=== PATIENT | male | born 1935 | race Caucasian/White ===

== ENCOUNTER 2017-02-18 07:18 | Day surgery (SDC) | payer MEDICARE, BC ==
[2017-02-18] MEDS ORDERED: PROPOFOL 500 MG/50 ML EMU IV ONE (07:33)
[2017-02-18] MEDS ORDERED: LIDOCAINE HCL 1% MPF SOL ONE (07:33)
[2017-02-18 09:04] VITALS: TEMP 97.4
[2017-02-18 09:31] VITALS: RESP 20
[2017-02-18 09:40] VITALS: BP 153/78; PULSE 59; O2SAT 99
== END 2017-02-18 09:51 | disposition home or self-care (01) | DRG 392 ==
LOC: SURG 07:18
PROVIDERS: ATTEND Internal Medicine Gastroenterology
DX: R13.10 Dysphagia, unspecified (principal); K21.9 Gastro-esophageal reflux disease without esophagitis; K22.70 Barrett's esophagus without dysplasia; K44.9 Diaphragmatic hernia without obstruction or gangrene; K31.7 Polyp of stomach and duodenum
CPT/HCPCS: J2001; J2704

== ENCOUNTER 2017-04-04 09:36 | Outpatient (CLI) | payer MEDICARE, BC ==
[2017-02-18 09:40] VITALS: O2SAT 99
== END 2017-04-04 09:37 | disposition home or self-care (01) | DRG 561 ==
LOC: CONVCARE 09:36
PROVIDERS: ATTEND Orthopaedic Surgery
DX: S72.142D Displaced intertrochanteric fracture of left femur, subsequent encounter for closed fracture with routine healing (principal); M17.0 Bilateral primary osteoarthritis of knee
CPT/HCPCS: 73502; 73552; 73564

== ENCOUNTER 2017-05-26 05:45 | Inpatient (IN) | payer MEDICARE, BC ==
[2017-05-26] MEDS ORDERED: SCOPOLAMINE 1.5MG PATCH TD SCH (06:00)
[2017-05-26] MEDS ORDERED: LACTATED RINGERS 1,000 ML IV ONE (06:00)
[2017-05-26] MEDS ORDERED: LACTATED RINGERS 1,000 ML IV SCH (07:00)
[2017-05-26] MEDS ORDERED: SODIUM CHLORIDE 20 ML 40 ML ONE (07:08)
[2017-05-26] MEDS ORDERED: TRANEXAMIC ACID 100 MG/ML SOL ONE ×2 (07:08→07:09)
[2017-05-26] MEDS ORDERED: MIDAZOLAM 2 MG/2 ML SOL ONE (07:12)
[2017-05-26] MEDS ORDERED: PROPOFOL 500 MG/50 ML EMU IV ONE ×3 (07:12→10:28)
[2017-05-26] MEDS ORDERED: MORPHINE SULFATE 0.5 MG/ML SOL ONE (07:12)
[2017-05-26] MEDS ORDERED: DEXAMETHASONE 20 MG/5 ML (4 MG/ML SOL) ONE (07:12)
[2017-05-26] MEDS ORDERED: LIDOCAINE HCL 1% MPF SOL ONE (07:12)
[2017-05-26] MEDS ORDERED: ONDANSETRON HCL 4 MG/2 ML SOL ONE (07:12)
[2017-05-26] MEDS ORDERED: PHENYLEPHRINE HYDROCHLORIDE 10 MG/ML SOL ONE (07:18)
[2017-05-26] MEDS ORDERED: CEFAZOLIN SODIUM 1 GM PDS ONE ×3 (07:18→19:50)
[2017-05-26] MEDS ORDERED: EPHEDRINE SULFATE 50 MG/ML SOL ONE (09:16)
[2017-05-26] MEDS: BUPIVACAINE HCL 0.25% MPF 10 ML SOL INFIL ONE ×4 (09:48→11:41)
[2017-05-26] MEDS: BUPIVACAINE LIPOSOME 20 ML SUS ONE ×4 (09:48→11:41)
[2017-05-26] MEDS ORDERED: SODIUM CHLORIDE 0.9% FLUSH 10 ML SOL IV ONE ×4 (09:48→11:41)
[2017-05-26] MEDS ORDERED: PROPOFOL 10 MG/ML EMU IV ONE (11:32)
[2017-05-26] MEDS ORDERED: MAGNESIUM HYDROXIDE 30 ML SUS PO PRN (13:02)
[2017-05-26] MEDS ORDERED: ZOLPIDEM TARTRATE 5 MG TAB PO PRN (13:02)
[2017-05-26] MEDS ORDERED: SODIUM CHLORIDE 0.9% 500 ML 500 ML IV PRN (13:02)
[2017-05-26] MEDS ORDERED: ALUMINUM/MAGNESIUM 30 ML SUS PO PRN (13:02)
[2017-05-26] MEDS ORDERED: ACETAMINOPHEN 325 MG PO PRN (13:02)
[2017-05-26] MEDS ORDERED: DIAZEPAM 5 MG TAB PO PRN (13:02)
[2017-05-26] MEDS ORDERED: ONDANSETRON 4 MG ODT BU PRN (13:02)
[2017-05-26] MEDS ORDERED: FLEET ENEMA PR PRN (13:02)
[2017-05-26] MEDS ORDERED: ONDANSETRON HCL 4 MG/2 ML SOL IV PRN (13:02)
[2017-05-26] MEDS ORDERED: BISACODYL 10 MG SUP PR PRN (13:02)
[2017-05-26] MEDS: DEXTROSE/SALINE 0.45/KCL 20MEQ 1,000 ML/1,000 ML SOL IV SCH (13:45)
[2017-05-26] MEDS: SODIUM CHLORIDE 0.9% FLUSH 10 ML SOL IV SCH ×2 (13:45→22:32)
[2017-05-26] MEDS: APAP/OXYCODONE 325/5 TAB PO PRN ×2 (15:23→21:05)
[2017-05-26] MEDS ORDERED: CEFAZOLIN SODIUM 1 GM PDS 2 GM in SODIUM CHLORIDE 0.9% 100 ML 100 ML IV SCH (19:03)
[2017-05-26] MEDS ORDERED: SODIUM CHLORIDE 0.9% 100 ML 100 ML IV ONE (19:50)
[2017-05-26] MEDS: CEFAZOLIN SODIUM 1 GM PDS 2 GM in SODIUM CHLORIDE 0.9% 100 ML 100 ML IV SCH (20:21)
[2017-05-26] MEDS: GABAPENTIN 300 MG CAP PO SCH (21:04)
[2017-05-26] MEDS: SENNOSIDES A AND B 8.6 MG TAB PO SCH (21:05)
[2017-05-27] MEDS: DEXTROSE/SALINE 0.45/KCL 20MEQ 1,000 ML/1,000 ML SOL IV SCH ×3 (00:10→21:00)
[2017-05-27] MEDS ORDERED: SODIUM CHLORIDE 0.9% 100 ML 100 ML IV ONE (03:34)
[2017-05-27] MEDS ORDERED: CEFAZOLIN SODIUM 1 GM PDS ONE (03:34)
[2017-05-27] MEDS: APAP/OXYCODONE 325/5 TAB PO PRN ×2 (03:45→08:18)
[2017-05-27] MEDS: CEFAZOLIN SODIUM 1 GM PDS 2 GM in SODIUM CHLORIDE 0.9% 100 ML 100 ML IV SCH (03:45)
[2017-05-27] MEDS: SODIUM CHLORIDE 0.9% FLUSH 10 ML SOL IV SCH ×2 (05:02→15:37)
[2017-05-27 07:20] LABS: CALCIUM 7.8 mg/dl (8.5-10.1); POTASSIUM 4.8 mMol/L (3.5-5.1)
[2017-05-27 07:21] LABS: MEAN CORPUSCULAR HGB CONC 34.8 gm/dl (32.0-36.0)
[2017-05-27] MEDS: ENOXAPARIN 40 MG SOL SC SCH (08:18)
[2017-05-27] MEDS: GABAPENTIN 300 MG CAP PO SCH ×2 (08:18→20:37)
[2017-05-27] MEDS ORDERED: PANTOPRAZOLE SODIUM 40 MG ECT PO SCH (09:00)
[2017-05-27] MEDS: APAP/HYDROCODONE 325/5 TAB PO PRN ×2 (13:45→20:36)
[2017-05-27] MEDS: SENNOSIDES A AND B 8.6 MG TAB PO SCH (20:37)
[2017-05-28] MEDS: SODIUM CHLORIDE 0.9% FLUSH 10 ML SOL IV SCH ×4 (01:37→20:27)
[2017-05-28] MEDS: APAP/HYDROCODONE 325/5 TAB PO PRN ×3 (05:40→18:28)
[2017-05-28 05:52] LABS: MEAN CORPUSCULAR HGB CONC 36.8 gm/dl (32.0-36.0)
[2017-05-28 06:02] LABS: CALCIUM 7.7 mg/dl (8.5-10.1)
[2017-05-28] MEDS ORDERED: SODIUM CHLORIDE 0.9% 1000ML 1,000 ML IV SCH (07:00)
[2017-05-28] MEDS: GABAPENTIN 300 MG CAP PO SCH ×2 (08:42→20:26)
[2017-05-28] MEDS: ENOXAPARIN 40 MG SOL SC SCH (08:42)
[2017-05-28] MEDS: PANTOPRAZOLE SODIUM 40 MG/10 ML PDS IV SCH (08:43)
[2017-05-28] MEDS ORDERED: ALBUTEROL NEB SOL 2.5MG/3ML 1 VIAL SOL NEB ONE (11:40)
[2017-05-28] MEDS ORDERED: ALBUTEROL NEB SOL 2.5MG/3ML 1 VIAL SOL NEB PRN (17:35)
[2017-05-28] MEDS: SENNOSIDES A AND B 8.6 MG TAB PO SCH (20:26)
[2017-05-29] MEDS: APAP/HYDROCODONE 325/5 TAB PO PRN ×3 (04:44→20:28)
[2017-05-29] MEDS: SODIUM CHLORIDE 0.9% FLUSH 10 ML SOL IV SCH ×4 (04:45→20:30)
[2017-05-29 07:17] LABS: CALCIUM 7.8 mg/dl (8.5-10.1); POTASSIUM 4.5 mMol/L (3.5-5.1)
[2017-05-29] MEDS: PANTOPRAZOLE SODIUM 40 MG/10 ML PDS IV SCH (08:56)
[2017-05-29] MEDS: GABAPENTIN 300 MG CAP PO SCH ×2 (08:56→20:28)
[2017-05-29] MEDS ORDERED: FERROUS GLUCONATE 324 MG TAB PO SCH (09:00)
[2017-05-29] MEDS: ENOXAPARIN 40 MG SOL SC SCH (09:01)
[2017-05-29] MEDS: POLYETHYLENE GLYCOL 17 GM/1 TBS PDS PO SCH (09:07)
[2017-05-29] MEDS: SENNOSIDES A AND B 8.6 MG TAB PO SCH (20:28)
[2017-05-30] MEDS: SODIUM CHLORIDE 0.9% FLUSH 10 ML SOL IV SCH ×4 (05:17→23:25)
[2017-05-30] MEDS: APAP/HYDROCODONE 325/5 TAB PO PRN ×3 (05:25→17:47)
[2017-05-30 07:20] LABS: CALCIUM 7.9 mg/dl (8.5-10.1); POTASSIUM 4.1 mMol/L (3.5-5.1)
[2017-05-30 07:25] LABS: BASOPHILS % (AUTO) 1 % (0-3); EOSINOPHILS % (AUTO) 3 % (0-9); HEMATOCRIT 22 % (39-53); MEAN CORPUSCULAR VOLUME 94 fL (80-100); MONOCYTES % (AUTO) 12.4 % (0-12); NEUTROPHILS % (AUTO) 75.6 % (37-80)
[2017-05-30] MEDS: GABAPENTIN 300 MG CAP PO SCH ×2 (08:20→19:59)
[2017-05-30] MEDS: FERROUS GLUCONATE 324 MG TABLET PO SCH (08:21)
[2017-05-30] MEDS: POLYETHYLENE GLYCOL 17 GM/1 TBS PDS PO SCH (08:22)
[2017-05-30] MEDS: PANTOPRAZOLE SODIUM 40 MG/10 ML PDS IV SCH (08:28)
[2017-05-30] MEDS: ENOXAPARIN 40 MG SOL SC SCH (08:31)
[2017-05-30 10:34] LABS: ABO O; ANTIBODY SCREEN Negative; RH TYPE Negative; UNIT TYPE O NEGATIVE
[2017-05-30 10:35] LABS: UNIT TYPE O NEGATIVE
[2017-05-30] MEDS ORDERED: FUROSEMIDE 20mg SOL IV ONE (16:32)
[2017-05-30 16:35] VITALS: RESP 20
[2017-05-30] MEDS ORDERED: FUROSEMIDE 20mg SOL ONE (16:38)
[2017-05-30] MEDS: SENNOSIDES A AND B 8.6 MG TAB PO SCH (19:59)
[2017-05-31] MEDS: APAP/HYDROCODONE 325/5 TAB PO PRN ×2 (02:14→07:44)
[2017-05-31 06:37] VITALS: BP 124/77; PULSE 78; TEMP 98.3; O2SAT 92
[2017-05-31] MEDS: SODIUM CHLORIDE 0.9% FLUSH 10 ML SOL IV SCH ×3 (06:46→08:44)
[2017-05-31 07:07] LABS: CALCIUM 8.1 mg/dl (8.5-10.1); POTASSIUM 3.8 mMol/L (3.5-5.1)
[2017-05-31 07:15] LABS: HEMATOCRIT 29 % (39-53); MEAN CORPUSCULAR HGB CONC 34.8 gm/dl (32.0-36.0); MEAN CORPUSCULAR VOLUME 91 fL (80-100)
[2017-05-31 07:38] LABS: LYMPHOCYTES % (MANUAL) 14 % (10-50)
[2017-05-31 07:39] LABS: BASOPHILS % (MANUAL) 0 % (0-3); EOSINOPHILS % (MANUAL) 3 % (0-9); NORMAL RBCS PRESENT
[2017-05-31] MEDS: ENOXAPARIN 40 MG SOL SC SCH (08:41)
[2017-05-31] MEDS: GABAPENTIN 300 MG CAP PO SCH (08:42)
[2017-05-31] MEDS: FERROUS GLUCONATE 324 MG TABLET PO SCH (08:42)
[2017-05-31] MEDS: POLYETHYLENE GLYCOL 17 GM/1 TBS PDS PO SCH (08:43)
[2017-05-31] MEDS: PANTOPRAZOLE SODIUM 40 MG/10 ML PDS IV SCH (08:43)
== END 2017-05-31 15:00 | disposition home or self-care (01) | DRG 462 ==
LOC: ACUTE CARE 05:45
PROVIDERS: ADMIT Orthopaedic Surgery; ATTEND Orthopaedic Surgery
PROC: F0125ZZ Range of Motion and Joint Integrity Assessment of Neurological System - Lower Back / Lower Extremity (ICD-10-PCS; 2017-05-26)
PROC: 0SRD0J9 Replacement of Left Knee Joint with Synthetic Substitute, Cemented, Open Approach (ICD-10-PCS; 2017-05-26)
PROC: 0SRC0J9 Replacement of Right Knee Joint with Synthetic Substitute, Cemented, Open Approach (ICD-10-PCS; 2017-05-26)
PROC: F01 Physical Rehabilitation and Diagnostic Audiology, Rehabilitation, Motor and/or Nerve Function Assessment (ICD-10-PCS; principal; 2017-05-26 08:00)
PROC: F02Z1ZZ Dressing Assessment (ICD-10-PCS; 2017-05-27)
PROC: F02Z3ZZ Grooming/Personal Hygiene Assessment (ICD-10-PCS; 2017-05-27)
PROC: F01ZDZZ Gait and/or Balance Assessment (ICD-10-PCS; 2017-05-30)
PROC: F01ZBZZ Bed Mobility Assessment (ICD-10-PCS; 2017-05-30)
PROC: 30233N1 Transfusion of Nonautologous Red Blood Cells into Peripheral Vein, Percutaneous Approach (ICD-10-PCS; 2017-05-30)
DX: M17.0 Bilateral primary osteoarthritis of knee (principal); D64.9 Anemia, unspecified; N18.3 Chronic kidney disease, stage 3 (moderate); K21.9 Gastro-esophageal reflux disease without esophagitis; Z96.653 Presence of artificial knee joint, bilateral; Z87.898 Personal history of other specified conditions; R41.0 Disorientation, unspecified; R11.10 Vomiting, unspecified
CPT/HCPCS: 36415; 51798; 71045; 73560; 80048; 85007; 85018; 85025; 85027; 85049; 86850; 86900; 86901; 86920; 94150; 94640; 99070; J0690; J1100; J1650; J1940; J2250; J2274; J2405; J7613; A6232; A9270-GY; J2001; J2370; J2704; J3490

== ENCOUNTER 2017-06-30 09:13 | Outpatient (CLI) | payer MEDICARE, BC ==
[2017-05-31 06:37] VITALS: O2SAT 92
== END 2017-06-30 09:14 | disposition home or self-care (01) | DRG 561 ==
LOC: CONVCARE 09:13
PROVIDERS: ATTEND Orthopaedic Surgery
DX: Z47.1 Aftercare following joint replacement surgery (principal); Z96.653 Presence of artificial knee joint, bilateral
CPT/HCPCS: 73560; 73562; 73565